=== PATIENT | male | born 1980 | race African-American/Black ===

== ENCOUNTER 2018-01-01 21:02 | Emergency (ER) | payer SELFPAY ==
[2018-01-01 21:07] VITALS: BP 148/90; BMI 30.8
[2018-01-01] MEDS ORDERED: TORADOL 30 MG VIAL IVP ONE (21:33)
[2018-01-01] MEDS ORDERED: BENADRYL INJ 50 MG VIAL IVP ONE (21:33)
[2018-01-01] MEDS ORDERED: NS 1000 ML 1,000 ML IV ONE (21:35)
[2018-01-01] MEDS ORDERED: TORADOL 30 MG VIAL ONE (21:41)
[2018-01-01] MEDS ORDERED: NS 1000 ML 1,000 ML ONE (21:41)
[2018-01-01] MEDS ORDERED: BENADRYL INJ 50 MG VIAL ONE (21:41)
--- NOTE | 2018-01-01 22:07 | DR.GENAD ---
HPI - PCP Primary Care Physician: YOVANI LOZA - Complaint/Symptoms Chief Complaint:: HEADACHE LAST 3 NIGHTS, BEEN TAKING TYLENOL NOT HELPING. NAUSEA. DENIES VOMITING. SENSITIVE LIGHTS Self Treatment fo Chief Complaint: TYLENOL - Nurses notes reviewed Nurses Notes Review: Yes - Source History Provided: Patient - Mode of Arrival Mode of Arrival: Ambulatory - Timing Onset of Chief Complaint: 12/29/17 - Duration Duration: Since Onset How lon Duration: Days - Severity Severity: Moderate PMH - PMH Past Medical History: Yes Past Medical History: Diabetes, Hypertension Past Surgical History: No - Family History History of Family Medical Conditions: Yes Family Medical History: Diabetes Mellitus, Cancer, Coronary Artery Disease, Hypertension - Social History Does patient currently use any type of tobacco product: No Have you used tobacco products in the last 12 months: No Type of Tobacco Use: None Does any household member use tobacco: No Alcohol Use: None Do you use any recreational Drugs:: No Lives Where: Home - infectious screening Have you traveled outside the country in the last 6 months?: No Isolation: Standard ROS - Review of Systems Constitutional: Chills, Fever, Fatigue Eyes: No Symptoms Reported ENTM: No Symptoms Reported Respiratoy: No Symptoms Reported Cardiovascular: No Symptoms Reported Gastrointestinal/Abdominal: No Symptoms Reported, Nausea Genitourinary: No Symptoms Reported Neurological: No Symptoms Reported Musculoskeletal: No Symptoms Reported, Joint Pain, Muscle Pain, Other (diffuse muscle aches) Integumentary: No Symptoms Reported Hematologic/Lymphatic: No Symptoms Reported Endocrine: No Symptoms Reported Psychiatric: No Symptoms Reported All Other Systems: Reviewed and Negative PE - Vital Signs Vitals: Temperature 98.9 F Pulse Rate 96 Respiratory Rate 20 Blood Pressure [Left Arm] 147/95 Blood Pressure 148/90 O2 Sat by Pulse Oximetry 98 - General Limitations: No Limitations General Appearance: Alert, In No Apparent Distress - Head Head Exam: Normal Inspection - Eyes Eye exam: Normal Appearance, PERRL - ENT ENT Exam: Normal Exam Throat Exam: Normal Inspection. negative: Tonsillar Erythema - Neck Neck Exam: Normal Inspection. negative: Tenderness, Meningismus, Lymphadenopathy - Chest Chest Inspection: Normal Inspection - Respiratory Respiratory Exam: Normal Lung Sounds Bilat Respiratory Exam: Bilateral Clear to Auscultation - Cardiovascular Cardiovascular Exam: Regular Rate, Normal Rhythm, Normal Heart Sounds - Abdominal Exam Abdominal Exam: Normal Bowel Sounds - Extremities Extremities Exam: Normal Inspection, Normal Capillary Refill. negative: Tenderness, Edema - Back Back Exam: Normal Inspection - Neurologic Neurological Exam: Alert, Oriented X3 - Psychiatric Psychiatric Exam: Normal Affect, Normal Mood - Skin Skin Exam: Warm, Dry ROR - Labs Reviewed Laboratory Results Reviewed?: Yes (flu -) Laboratory: Influenza Type A (PCR) Negative (NEGATIVE) 01/01/18 21:51 Influenza Type B (PCR) Negative (NEGATIVE) 01/01/18 21:51 - Diagnosis Discharge Problem: Headache, Flu-like symptoms - Discharge Plan Condition: Stable - Follow ups/Referrals Follow ups/Referrals: NFD,None [Primary Care Provider] - 3 days - Instructions Additional Notes - Additional Notes Additional Notes: feels much better after IVF, meds. Reassured with neg flu. Ready for d/c home
== END 2018-01-01 22:56 | disposition home or self-care (01) ==
LOC: ER 21:11
DX: R51 Headache (principal); R68.83 Chills (without fever); R50.9 Fever, unspecified; R53.83 Other fatigue
CPT/HCPCS: 87502; 96365; 96374; 96375; 99283; A4222; J1200; J1885

== ENCOUNTER 2018-01-14 22:16 | Emergency (ER) | payer SELFPAY ==
[2018-01-14 22:20] VITALS: BMI 31.4
--- NOTE | 2018-01-14 23:12 | DR.GENAD ---
HPI - PCP Primary Care Physician: IRA - HPI Comment HPI Comment: PATIENT SAID ONE OF THE WORSE HEADACHE HE HAS HAD. POST NASAL DRIP PRESENT. NO FEVER. BP ELEVATED. NOT A HYPERTENSIVE PATIENT. - Complaint/Symptoms Chief Complaint Doctors Comments: HEADACHE SEVERE PAST ONE HOUR. IN ED FEW DAYS AGO FOR SAME. Chief Complaint:: PT STATES" I GOT A REAL BAD HEADACHEIT JUST STARTED ABOUT 30 MINUTES AGO" PT DID NOT TAKE ANYTHING FOR THE HEADACHE - Nurses notes reviewed Nurses Notes Review: Yes - Source History Provided: Patient - Mode of Arrival Mode of Arrival: Ambulatory - Timing Onset of Chief Complaint: 01/14/18 Came on: Suddenly - Duration Duration: Constant Duration: Hours - Severity Severity: Moderate PMH - PMH Past Medical History: Yes Past Medical History: Diabetes, Hypertension Past Surgical History: No - Family History History of Family Medical Conditions: Yes Family Medical History: Diabetes Mellitus, Cancer, Coronary Artery Disease, Hypertension - Social History Type of Tobacco Use: Cigarettes Alcohol Use: Occasionally Do you use any recreational Drugs:: No Lives With: Family Lives Where: Home - infectious screening In the last 2 months have you had wt loss of >10#?: NO Have you had fever, night sweats or hemotysis?: No Have you traveled outside the country in the last 6 months?: No Isolation: Standard ROS - Review of Systems Constitutional: No Symptoms Reported Eyes: No Symptoms Reported ENTM: No Symptoms Reported Respiratoy: No Symptoms Reported Cardiovascular: No Symptoms Reported Gastrointestinal/Abdominal: No Symptoms Reported Genitourinary: No Symptoms Reported Neurological: Headache Musculoskeletal: No Symptoms Reported Integumentary: No Symptoms Reported Hematologic/Lymphatic: No Symptoms Reported Endocrine: No Symptoms Reported All Other Systems: Reviewed and Negative PE - Vital Signs Vitals: Temperature 97.6 F Pulse Rate 93 Respiratory Rate 18 Blood Pressure [Left Arm] 174/86 Blood Pressure 186/107 O2 Sat by Pulse Oximetry 100 - General Limitations: No Limitations General Appearance: Alert - Head Head Exam: Normal Inspection - Eyes Eye exam: Normal Appearance - ENT ENT Exam: Normal External Ear Exam External Ear Exam: Normal External Inspection TM/Canal Exam: Bilateral Normal Nose Exam: Normal Nose Exam Mouth Exam: Normal Inspection Throat Exam: Normal Inspection - Neck Neck Exam: Trachea Midline - Chest Chest Inspection: Symmetric Chest Wall Rise - Respiratory Respiratory Exam: Normal Lung Sounds Bilat Respiratory Exam: Bilateral Clear to Auscultation - Cardiovascular Cardiovascular Exam: Regular Rate, Normal Rhythm, Normal Heart Sounds - Abdominal Exam Abdominal Exam: Normal Bowel Sounds, Soft. negative: Tenderness - Extremities Extremities Exam: Normal Inspection - Back Back Exam: Normal Inspection - Neurologic Neurological Exam: Alert, Oriented X3 - Psychiatric Psychiatric Exam: Normal Affect, Normal Mood - Skin Skin Exam: Normal Color MDM - Differential Diagnosis Differential Diagnosis: HEADACHE, SINUSITIS, CVA. HTN Course - Treatment Treatment: SEE ORDERS. - Education/Counseling Education/Counseling: Patient, Education Educated On: Treatment, Diagnosis, Needs for Follow Up ROR - XRAY XRAY Findings: REPORT DISCUSS WITH PATIENT. - Diagnosis Discharge Problem: Headache Qualifiers: Headache type: unspecified Headache chronicity pattern: acute headache Intractability: intractable Qualified Code(s): R51 - Headache Hypertension Qualifiers: Hypertension type: unspecified Qualified Code(s): I10 - Essential (primary) hypertension - Discharge Plan Disposition: 01 HOME, SELF-CARE Condition: Stable Prescriptions: [id number] [Fioricet Tab] 1 tab PO Q8H PRN #30 tab PRN Reason: Migraine Headache Clonidine HCl [CATAPRES 0.1 MG TAB *] 0.1 mg PO BID #60 tab - Follow ups/Referrals Follow ups/Referrals: NFD,None [Primary Care Provider] - 3 days Matthew Best [STAFF PHYSICIAN] - 2 days - Instructions Instructions: Headache and Arthritis, Hypertension, [id number] Additional Instructions: RETURN TO ED IIIF WORSE. BP DAILY CHART AND TAKE TO YOUR DOCTOR.
[2018-01-14] MEDS ORDERED: TORADOL 60 MG VIAL IM ONE (23:20)
[2018-01-14] MEDS ORDERED: PHENERGAN INJ 25 MG IM ONE (23:20)
[2018-01-14] MEDS ORDERED: PHENERGAN INJ 25 MG ONE (23:25)
[2018-01-14] MEDS ORDERED: TORADOL 60 MG VIAL ONE (23:25)
--- NOTE | 2018-01-14 23:52 | CT ---
CT head without contrast Indication: Headache Technique: Axial images from the skullbase to the vertex without contrast. Coronal and sagittal refor mats provided. Comparison: 11/12/[address] Findings: There is no acute intracranial hemorrhage, mass or mass effect. No extra-axial fluid collec tion or abnormal area of hypoattenuation suggest infarction seen. Ventricles and sulci are normal. Elliot ne windows shows no acute abnormality. No fracture seen. Paranasal sinuses and mastoid air cells are clear. Impression: No acute intracranial hemorrhage or change from the prior Reported By:
[2018-01-15 00:08] VITALS: BP 174/86
[2018-01-15] MEDS ORDERED: CATAPRES TAB 0.1 MG PO ONE (00:10)
[2018-01-15] MEDS ORDERED: CATAPRES TAB 0.1 MG ONE (00:12)
== END 2018-01-15 00:14 | disposition home or self-care (01) ==
LOC: ER 22:27
DX: R51 Headache (principal); I10 Essential (primary) hypertension
CPT/HCPCS: 70450; 96372; 99282; 99283; J1885; J2550